=== PATIENT | female | born 1965 | race Caucasian/White ===

== ENCOUNTER 2018-12-17 03:29 | Emergency (ER) | payer OTHER ==
[~2018-12-17] VITALS: Ht 152.4 cm; Wt 63.0 kg
[2018-12-17] MEDS ORDERED: KETOROLAC 30MG/ML VIAL IV ONE (05:00)
[2018-12-17] MEDS ORDERED: SODIUM CHLORIDE 0.9% 1,000 ML IV ONE (05:00)
[2018-12-17] MEDS ORDERED: DIPHENHYDRAMINE 50MG/ML VIAL IV ONE (05:00)
[2018-12-17 06:36] VITALS: BP 110/69
== END 2018-12-17 06:41 | disposition home or self-care (01) ==
LOC: ER 03:29
DX: R51 Headache (principal); F41.9 Anxiety disorder, unspecified
CPT/HCPCS: 70450; 96374; 96375; 99284; J1200; J1885; J7030; Z7610

== ENCOUNTER 2020-03-25 13:25 | Emergency (ER) | payer OTHER ==
[~2020-03-25] VITALS: Ht 152.4 cm; Wt 59.0 kg
[2020-03-25] MEDS ORDERED: LORAZEPAM 2MG/ML CPJ IV ONE ×2 (13:45→17:00)
[2020-03-25 14:23] LABS: BASOPHILS % 0.7 % (0.0-2.0); EOSINOPHILS % 0.2 % (0.0-5.0); HEMATOCRIT. 40.3 % (36.0-48.0); HEMOGLOBIN. 13.8 g/dL (12.0-16.0); MEAN CORPUSCULAR VOLUME 87.5 fL (81.0-99.0); MEAN PLATELET VOLUME 8.9 fl (7.4-10.4); MONOCYTES % 8.5 % (2.0-8.0); NEUTROPHILS % 61.6 % (40.0-76.0); PLATELET 331 x1000/uL (130-400); RED BLOOD CELL COUNT 4.61 mill/uL (4.2-5.4); RED CELL DISTRIBUTION WIDTH 14.1 % (11.6-14.6)
[2020-03-25 14:32] LABS: CHLORIDE 104 mEq/L (98-107)
[2020-03-25 17:44] VITALS: BP 120/78
== END 2020-03-25 17:44 | disposition home or self-care (01) ==
LOC: ER 13:25
DX: F41.0 Panic disorder [episodic paroxysmal anxiety] (principal)
CPT/HCPCS: 36415; 71045; 80053; 84484; 85025; 93005; 96374; 96376; 99285; J2060